=== PATIENT | female | born 1945 | race Caucasian/White ===

== ENCOUNTER 2016-09-01 12:30 | Outpatient (CLI) | payer MEDICARE, BC | END 2016-09-01 12:31 | DX: R10.9 Unspecified abdominal pain (principal); E78.00 Pure hypercholesterolemia, unspecified; E03.9 Hypothyroidism, unspecified ==

== ENCOUNTER 2016-09-04 12:31 | Outpatient (CLI) | payer MEDICARE, BC | END 2016-09-04 12:32 | disposition home or self-care (01) | DX: R10.9 Unspecified abdominal pain (principal) ==

== ENCOUNTER 2017-01-16 18:08 | Emergency (ER) | payer MEDICARE, BC ==
[2017-01-16] MEDS ORDERED: BUFFERED LIDOCAINE 10 ML SYRINGE ONE (19:36)
--- NOTE | 2017-01-16 19:39 | ED Physician Documentation ---
PD HPI HEAD INJURY - Stated complaint Stated Complaint: FALL HEAD INJ - Chief complaint Chief Complaint: Laceration - History obtained from History obtained from: Patient, Family () - History of Present Illness Mechanism of head injury: Fell (slip and fall at home, hit occiput on rock. No LOC. Tetanus UTD, some neck pain as well, no other injuries.) Review of Systems Constitutional: reports: Reviewed and negative Eyes: denies: Loss of vision, Decreased vision, Photophobia Ears: denies: Loss of hearing, Ear pain Nose: denies: Rhinorrhea / runny nose, Congestion Throat: denies: Dental pain / toothache, Sore throat PD PAST MEDICAL HISTORY - Past Medical History Past Medical History: No - Past Surgical History Past Surgical History: No - Allergies Allergies/Adverse Reactions: Allergies Allergy/AdvReac Type Severity Reaction Status Date / Time No Known Drug Allergies Allergy Verified 01/16/17 18:23 - Social History Does the pt smoke?: Yes Smoking Status: Current every day smoker Does the pt drink ETOH?: Yes Does the pt have substance abuse?: No - Family History Family history: reports: Non contributory - Immunizations Immunizations are current?: Yes Immunizations: TDAP current <10years PD ED PE NORMAL - Vitals Vital signs reviewed: Yes - General General: Alert and oriented X 3, No acute distress - HEENT HEENT: PERRL, EOMI, Other (She has a boggy Left occiptal occipital hematoma with overlying 1cm lac.) - Neck Neck: Supple, no meningeal sign, Other (mild diffuse TTP) - Cardiac Cardiac: RRR, No murmur - Respiratory Respiratory: No respiratory distress, Clear bilaterally - Abdomen Abdomen: Non tender - Neuro Neuro: Alert and oriented X 3, shirt sorter 2-12 intact, No motor deficit, No sensory deficit, Normal speech - Psych Psych: Normal mood, Normal affect Results - Vitals Vitals: Vital Signs - 24 hr 01/16/17 18:15 Temperature 36.0 C L Heart Rate 79 Respiratory 18 Rate Blood Pressure 171/94 H O2 Saturation 98 - Rads (name of study) CT Head and Cspine Radiology: EMP read contemporaneously (Degenerative and age-related changes without evidence of acute trauma.) Procedures - Laceration (location) Occiput Length in cm: 1 Wound type: Linear Anesthesia: Lidocaine 1%, With bicarb Wound Preparation: Irrigated copiously NS Skin layer closure: Lexie (2) Other: Tetanus UTD Complexity: Simple Departure - Departure Disposition: 01 Home, Self Care Clinical Impression: Concussion Qualifiers: Encounter type: initial encounter Loss of consciousness presence/duration: without LOC Qualified Code(s): S06.0X0A - Concussion without loss of consciousness, initial encounter Scalp laceration Qualifiers: Encounter type: initial encounter Qualified Code(s): S01.01XA - Laceration without foreign body of scalp, initial encounter Strain of neck Qualifiers: Encounter type: initial encounter Qualified Code(s): S16.1XXA - Strain of muscle, fascia and tendon at neck level, initial encounter Condition: Good Record reviewed to determine appropriate education?: Yes Instructions: ED Head Injury Closed Comments: Wash the wound briefly but in general keep it dry. Come back for any signs of infection which would include: Redness, swelling, drainage, increased pain, or fevers. Followup with your doctor in 7 days for suture removal. Your blood pressure was elevated today on check in to the emergency department. This does not mean that you have hypertension, it is a common phenomenon to check into the emergency department and have elevated blood pressure. I recommend that you see your primary care physician within the week to have it rechecked when you're feeling better.
[2017-01-16] MEDS ORDERED: HYDROcod/ACETAM 5/325 MG TABLET PO STA (19:57)
[2017-01-16] MEDS ORDERED: HYDROcod/ACETAM 5/325 MG TABLET ONE (19:58)
--- NOTE | 2017-01-16 20:25 | CT Preliminary Report ---
Exam: CT Head W/O IMPRESSION: Generalized age-related cortical atrophic changes without evidence of acute intracranial abnormality. [facility] SITE ID: [id number]
--- NOTE | 2017-01-16 20:27 | CT Report ---
EXAM: CT HEAD EXAM DATE: 01/16/2017 08:09 PM. CLINICAL HISTORY: Fall. Head injury. COMPARISON: MRI 12/24/2016. TECHNIQUE: Multiaxial CT images were obtained from the foramen magnum to the vertex. IV contrast: Non e. Reformats: Coronal. In accordance with CT protocol optimization, one or more of the following dose reduction techniques w ere utilized for this exam: automated exposure control, adjustment of mA and/or KV based on patient s ize, or use of iterative reconstructive technique. FINDINGS: Parenchyma: No intraparenchymal hemorrhage. No evidence of mass, midline shift, or CT findings of acu te infarction. Oneal-white differentiation is distinct. Extraaxial Spaces: Normal for age. No subdural or epidural collections identified. Ventricles: The ventricles and cortical sulci are prominent, consistent with age-related tissue loss. Sinuses: Imaged paranasal sinuses, orbits, and mastoids show no significant abnormality. Bones: No evidence of fracture or calvarial defect. Other: Mild chronic microangiopathic white matter changes are evident. Upper left parietal scalp [place] noted. IMPRESSION: Generalized age-related cortical atrophic changes without evidence of acute intracranial abnormality. [facility] Referring Provider Line: [phone] SITE ID: [id number]
--- NOTE | 2017-01-16 20:28 | CT Preliminary Report ---
Exam: CT Cervical Spine W/O IMPRESSION: 1. No acute cervical spine abnormalities. 2. Multilevel degenerative disk disease, worst at C5-C6. [facility] SITE ID: [id number]
--- NOTE | 2017-01-16 20:30 | CT Report ---
EXAM: CT CERVICAL SPINE WITHOUT CONTRAST DATE: 01/16/2017 08:16 PM HISTORY: Fall. Neck injury. COMPARISONS: None. TECHNIQUE: Thin-section axial images were acquired of the cervical spine without contrast. Post-proce ssing: Coronal and sagittal reformats. Other: None. In accordance with CT protocol optimization, one or more of the following dose reduction techniques w ere utilized for this exam: automated exposure control, adjustment of mA and/or KV based on patient s ize, or use of iterative reconstructive technique. FINDINGS: Alignment: Normal. No scoliosis or spondylolisthesis. Bones: No fracture or bone lesion. Interspace Levels/Facets: Disk space narrowing with spurring is at T4, moderate at C5-C6. Other: The paravertebral and prevertebral soft tissues are normal. The lung apices are clear. IMPRESSION: 1. No acute cervical spine abnormalities. 2. Multilevel degenerative disk disease, worst at C5-C6. [facility] Referring Provider Line: [phone] SITE ID: [id number]
[2017-01-16] MEDS ORDERED: HYDROcod/ACET 5/325 Prepack 6 PO STA (20:34)
[2017-01-16] MEDS ORDERED: HYDROcod/ACET 5/325 Prepack 6 PO ONE (20:39)
[2017-01-16 20:46] VITALS: BP 150/77
== END 2017-01-16 20:45 | disposition home or self-care (01) ==
LOC: ED 18:08
DX: S06.0X0A Concussion without loss of consciousness, initial encounter (principal); S01.01XA Laceration without foreign body of scalp, initial encounter; S16.1XXA Strain of muscle, fascia and tendon at neck level, initial encounter; W01.198A Fall on same level from slipping, tripping and stumbling with subsequent striking against other object, initial encounter; Y92.017 Garden or yard in single-family (private) house as the place of occurrence of the external cause; R03.0 Elevated blood-pressure reading, without diagnosis of hypertension; F17.200 Nicotine dependence, unspecified, uncomplicated
CPT/HCPCS: 12001; 70450; 72125; 99283; A9270

== ENCOUNTER 2017-08-17 21:29 | Emergency (ER) | payer MEDICARE, BC ==
[2017-08-17] MEDS ORDERED: LIDOCAINE 2% 10 ML MDV SUBQ STA (21:37)
[2017-08-17] MEDS ORDERED: fentaNYL 100 MCG/2 ML VIAL ONE (21:44)
[2017-08-17] MEDS ORDERED: fentaNYL 100 MCG/2 ML VIAL IVP STA (21:49)
[2017-08-17] MEDS ORDERED: ceFAZolin 2 GM/50 ML 2 GM/50 ML BAG IV ONE (21:50)
[2017-08-17] MEDS ORDERED: fentaNYL 100 MCG/2 ML VIAL IM STA (22:00)
[2017-08-17] MEDS ORDERED: BUPIVACAINE 0.5% PF 30 ML VIAL SUBQ STA (22:23)
--- NOTE | 2017-08-17 22:41 | XRAY Report ---
EXAM: LEFT HAND RADIOGRAPHY EXAM DATE: 08/17/2017 10:18 PM. CLINICAL HISTORY: Trauma second digit. COMPARISON: None. TECHNIQUE: 3 views. FINDINGS: Bones: No evidence for acute fracture. Joints: Moderate radial and mild dorsal subluxation at the second proximal interphalangeal joint. No acute fracture is seen. Second digit soft tissue swelling. IMPRESSION: Moderate radial and mild dorsal subluxation at the second proximal interphalangeal joint. No acute fracture is seen. Second digit soft tissue swelling. [facility] Referring Provider Line: [phone] SITE ID: [id number]
--- NOTE | 2017-08-17 22:41 | XRAY Preliminary Report ---
Exam: XR HAND 3 VIEW LT IMPRESSION: Moderate radial and mild dorsal subluxation at the second proximal interphalangeal joint. No acute fracture is seen. Second digit soft tissue swelling. [facility] SITE ID: [id number]
--- NOTE | 2017-08-18 00:24 | ED Physician Documentation ---
PD HPI UPPER EXT INJURY - Stated complaint Stated Complaint: LT FINGER INJURY - Chief complaint Chief Complaint: Laceration - History obtained from History obtained from: Patient, Family - History of Present Illness Location: Left, Finger Type of injury: Other Where injury occurred: Home Timing - onset: Today Timing - details: Abrupt onset, Still present Worsened by: Moving, Palpating Similar symptoms before: Has not had sx before Recently seen: Not recently seen - Additonal information Additional information: Patient is a 72 year old female who is presenting to the emergency department for open dislocation of the second digit on her right hand. According to patient and , patient got her finger caught in the harness of her dog who proceeded to run in [employer], dislocating her finger laterally 90 degrees. Review of Systems Constitutional: reports: Reviewed and negative Eyes: reports: Reviewed and negative Ears: reports: Reviewed and negative Nose: reports: Reviewed and negative Throat: reports: Reviewed and negative Respiratory: reports: Reviewed and negative GI: denies: Nausea, Vomiting : reports: Reviewed and negative Skin: reports: Lesions, Laceration (s) Musculoskeletal: reports: Extremity pain, Joint pain Neurologic: reports: Numbness PD PAST MEDICAL HISTORY - Past Medical History Past Medical History: Yes Endocrine/Autoimmune: HyPOthyroidism Psych: Depression, Anxiety - Past Surgical History Past Surgical History: 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 - Present Medications Home Medications: Ambulatory Orders Medication Instructions Recorded Confirmed Escitalopram Oxalate [Lexapro] 1 tab PO DAILY 08/17/17 08/17/17 Levothyroxine Sodium 1 tab PO DAILY 08/17/17 08/17/17 Amox/Clav 875/125 [Augmentin] 1 each PO Q12H #20 tablet 08/18/17 Oxycodone HCl/Acetaminophen 1 - 2 each PO Q6H PRN #14 tablet 08/18/17 [Percocet 5-325 mg Tablet] - Allergies Allergies/Adverse Reactions: Allergies Allergy/AdvReac Type Severity Reaction Status Date / Time No Known Drug Allergies Allergy Verified 08/17/17 21:40 - Social History Does the pt smoke?: Yes Smoking Status: Current every day smoker Does the pt drink ETOH?: Yes Does the pt have substance abuse?: No - Immunizations Immunizations are current?: Yes Immunizations: TDAP current <10years - POLST Patient has POLST: No PD ED PE NORMAL - General General: Alert and oriented X 3 - HEENT HEENT: Atraumatic - Cardiac Cardiac: RRR, No murmur - Respiratory Respiratory: No respiratory distress - Neuro Neuro: Alert and oriented X 3, No sensory deficit, Normal speech Eye Opening: Spontaneous Motor: Obeys Commands Verbal: Oriented GCS Score: 15 PD ED PE EXPANDED - General General: Alert, In Pain - Extremities Extremities: Left finger(s) (2nd digit open dislocation at 90%, ruputure of medial tendon), Sensory intact, Vascular intact. No: Tendon intact Results - Vitals Vitals: Vital Signs - 24 hr 08/17/17 08/17/17 08/18/17 21:30 22:59 00:45 Temperature 36.6 C 36.5 C Heart Rate 108 H 81 86 Respiratory 24 16 16 Rate Blood Pressure 187/110 H 123/79 132/78 H O2 Saturation 95 97 96 Oxygen O2 Source Room air - Rads (name of study) left hand Radiology: Final report received (no acute fracture, moderate dislocation of finger) Procedures - Laceration (location) left 2nd digit Length in cm: 3 Wound type: Curved Neurovascular status: Sensory intact, Motor intact, Vascular intact Tendon involvement: Tendon Injury Anesthesia: Marcaine 0.5% Wound Preparation: Chlorhexadine, Irrigated copiously NS, Wound explored, To the base Skin layer closure: Nylon, Size #-0 - enter number (4), Sutures - enter # (3) Other: Patient tolerated well, Neurovascular intact, Dressing applied, Tetanus UTD Complexity: Complex - Reduction Body part reduced: Left, Finger Fracture or dislocation: Dislocation Anesthesia: Digital block Shoulder reduction technique: Traction - counter tract Reduction aftercare: Alignment improved, Splint applied, Patient tolerated well PD MEDICAL DECISION MAKING - ED course Complexity details: reviewed old records, reviewed results, re-evaluated patient , considered differential, d/w patient, d/w family, d/w audit consultant ED course: Patient was seen immediately at bedside. Patient was treated with IM fentanyl and a digital block was performed. After the digital block the finger was reduced. Angulation improved from 90% to 15%. Patient was neurovascularly intact. Imaging was ordered. Patient was treated with ancef and was already up to date with tetanus. Patient was treated with another longer acting digital block with marcaine. When patient's returned from imaging the results were reviewed. there was no acute fracture. [facility] was contacted and the case was discussed [facility] Dr. Ha who recommended pain control, splinting augmentin. he stated that he would call the patient tomorrow to schedule surgical repair of a likely ruptured ligament. Patient's wound was loosely closed. Prescriptions were written. Patient and family were given detailed discharge and follow up instructions and were stable for discharge with outpatient follow up. Departure - Departure Disposition: 01 Home, Self Care Clinical Impression: Open finger dislocation Condition: Good Instructions: ED Laceration All Follow-Up: [facility] [Other] - Tomorrow Prescriptions: Amox/Clav 875/125 [Augmentin] 1 each PO Q12H #20 tablet Oxycodone HCl/Acetaminophen [Percocet 5-325 mg Tablet] 1 - 2 each PO Q6H PRN # 14 tablet PRN Reason: pain Comments: Your symptoms today are caused by dislocation, laceration and likely tendon laceration. You were started on antibiotics tonight and will need to be on them for the next 10 days. You can take motrin or tyenol for pain and percocet for breakthrough pain. You should be getting a call from [facility] tomorrow or the next day. You may return to the emergency department at any time for new , worsening or uncontrollable symptoms. Discharge Date/Time: 08/18/17 00:45
[2017-08-18] MEDS ORDERED: oxyCODONE/ACET 5/325 Prepack 4 PO STA (00:25)
[2017-08-18] MEDS ORDERED: BACITRACIN OINT TOP ONE (00:30)
[2017-08-18 00:56] VITALS: BP 132/78
== END 2017-08-18 00:45 | disposition home or self-care (01) ==
LOC: ED 21:29
DX: S63.280A Dislocation of proximal interphalangeal joint of right index finger, initial encounter (principal); S56.422A Laceration of extensor muscle, fascia and tendon of left index finger at forearm level, initial encounter; W23.0XXA Caught, crushed, jammed, or pinched between moving objects, initial encounter
CPT/HCPCS: 12002; 26770; 73130; 96365; 96372; 99284; A9270; J0690

== ENCOUNTER 2017-08-19 09:16 | Emergency (ER) | payer MEDICARE, BC ==
[2017-08-19] MEDS ORDERED: MORPHINE 2 MG/ML CARPUJECT IVP STA ×5 (09:44→13:04)
[2017-08-19] MEDS ORDERED: VANCOMYCIN INJ 1 GM in SODIUM CHLORIDE 0.9% 250 ML IV STA (09:44)
[2017-08-19] MEDS ORDERED: PIPERACILLIN/TAZOBACTAM 3.375 GM in SODIUM CHLORIDE 0.9% MINIBAG 100 ML IV STA (09:44)
--- NOTE | 2017-08-19 09:46 | ED Physician Documentation ---
History of Present Illness - Stated complaint Stated Complaint: LEFT FINGER INJ - Chief complaint Chief Complaint: Ext Problem - Additonal information Additional information: hx from pt and chart 72 female 2 days s.p open L PIP index finger dislocation with flexor tendon rupture (got finger tangled in dog harness and levi pulled an dtwisted) seen in ER per pt and EMR [facility] consulted, pt given dig block, finger reduced, wound sutured , finger splinted, dc on oral ab to follow up hand at [facility] next week for definitive repair pt returns today because finger is painful red swollen Review of Systems Constitutional: denies: Fever Musculoskeletal: reports: Extremity pain PD PAST MEDICAL HISTORY - Past Medical History Endocrine/Autoimmune: HyPOthyroidism Psych: Depression, Anxiety - Past Surgical History 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 - Present Medications Home Medications: Ambulatory Orders Medication Instructions Recorded Confirmed Escitalopram Oxalate [Lexapro] 1 tab PO DAILY 08/17/17 08/17/17 Levothyroxine Sodium 1 tab PO DAILY 08/17/17 08/17/17 Amox/Clav 875/125 [Augmentin] 1 each PO Q12H #20 tablet 08/18/17 Oxycodone HCl/Acetaminophen 1 - 2 each PO Q6H PRN #14 tablet 08/18/17 [Percocet 5-325 mg Tablet] - Allergies Allergies/Adverse Reactions: Allergies Allergy/AdvReac Type Severity Reaction Status Date / Time No Known Drug Allergies Allergy Verified 08/17/17 21:40 - Social History Does the pt smoke?: Yes Smoking Status: Current every day smoker Does the pt drink ETOH?: Yes Does the pt have substance abuse?: No - Immunizations Immunizations are current?: Yes Immunizations: TDAP current <10years - POLST Patient has POLST: No PD ED PE NORMAL - Vitals Vital signs reviewed: Yes - Cardiac Cardiac: RRR - Respiratory Respiratory: No respiratory distress, Clear bilaterally - Extremities Extremities: Other (L index finger - splint removed, finger diffusely red warm swollen extending onto hand, minimal senation distal to anterior PIP laceration , some deformity at PIP jt) Results - Vitals Vitals: Vital Signs - 24 hr 08/19/17 08/19/17 08/19/17 09:21 10:27 11:36 Temperature 36.6 C Heart Rate 88 74 66 Respiratory 22 18 18 Rate Blood Pressure 201/114 H 191/103 H 160/90 H O2 Saturation 99 100 98 08/19/17 08/19/17 12:42 13:37 Temperature Heart Rate 73 64 Respiratory 14 18 Rate Blood Pressure 152/85 H 139/105 H O2 Saturation 97 96 Oxygen O2 Source Room air - Labs Labs: Laboratory Tests 08/19/17 08/19/17 09:45 09:45 WBC 8.7 RBC 4.42 Hgb 13.7 Hct 40.3 MCV 91.2 MCH 31.0 MCHC 34.0 RDW 14.1 Plt Count 215 MPV 7.5 L Neut # 6.3 Lymph # 1.7 [place] # 0.6 Eos # 0.1 Baso # 0.1 Absolute Nucleated RBC 0.00 Nucleated RBC % 0.0 Sodium 136 Potassium 4.1 Chloride 101 Carbon Dioxide 22 Anion Gap 13.0 BUN 15 Creatinine 0.8 Estimated GFR (MDRD) 71 L Glucose 98 Calcium 9.8 PD MEDICAL DECISION MAKING - ED course ED course: wound cleans and dressed sensation improved when tight splint removed on rpt xrays finger is subluxed distal portion radial dorsal again - per prior report torn ligament so doubt further reductions will hold without surgery and pt now sensory intact given zosyn and vanco tdap UTD spoke to [facility] Dr Ingram who accepts pt in transfer in order to provide pain meds en route an expedite getting to surgery transfered by ambulance Departure - Departure Disposition: 02 Transfer Acute Care Hosp Clinical Impression: Open dislocation of finger of left hand Qualifiers: Encounter type: subsequent encounter Qualified Code(s): S63.259D - Unspecified dislocation of unspecified finger, subsequent encounter Condition: Fair Discharge Date/Time: 08/19/17 14:00
[2017-08-19 10:01] LABS: BASOPHILS # (AUTO) 0.1 10^3/uL (0.0-0.1); BASOPHILS % (AUTO) 0.7 %; EOSINOPHILS # (AUTO) 0.1 10^3/uL (0.0-0.7); EOSINOPHILS % (AUTO) 0.7 %; HGB - HEMOGLOBIN 13.7 g/dL (12.0-16.0); LYMPHOCYTES # (AUTO) 1.7 10^3/uL (1.5-3.5); LYMPHOCYTES % (AUTO) 19.8 %; MEAN CORPUSCULAR VOLUME 91.2 fL (81.0-99.0); MEAN PLATELET VOLUME 7.5 fL (7.9-10.8); MONOCYTES # (AUTO) 0.6 10^3/uL (0.0-1.0); MONOCYTES % (AUTO) 6.8 %; NEUTROPHILS # (AUTO) 6.3 10^3/uL (1.5-6.6); PLT - PLATELET COUNT 215 10^3/uL (130-450); RED BLOOD COUNT 4.42 10^6/uL (4.20-5.40); RED CELL DISTRIBUTION WIDTH 14.1 % (12.0-15.0); WHITE BLOOD COUNT 8.7 x10^3/uL (4.8-10.8)
[2017-08-19 10:04] LABS: CALCIUM 9.8 mg/dL (8.5-10.3); CREATININE 0.8 mg/dL (0.4-1.0)
--- NOTE | 2017-08-19 10:05 | XRAY Report ---
EXAM: LEFT HAND RADIOGRAPHY EXAM DATE: 08/19/2017 09:50 AM. CLINICAL HISTORY: Open dislocation now possible infection. COMPARISON: Left hand radiograph 08/17/2017. TECHNIQUE: 3 views. FINDINGS: Bones: There is volar dislocation of the left second PIP joint. No definite acute fractures. Joints: As above. Otherwise unremarkable. Soft Tissues: Unremarkable. IMPRESSION: 1. Second PIP joint dislocation. No definite acute fractures. [facility] Referring Provider Line: [phone] SITE ID: [id number]
--- NOTE | 2017-08-19 10:05 | XRAY Preliminary Report ---
Exam: XR HAND 3 VIEW LT IMPRESSION: 1. Second PIP joint dislocation. No definite acute fractures. [facility] SITE ID: [id number]
[2017-08-19] MEDS ORDERED: BACITRACIN OINT TOP ONE (10:54)
[2017-08-19] MEDS ORDERED: BUPIVACAINE 0.5% PF 30 ML VIAL SUBQ STA (11:40)
[2017-08-19 13:38] VITALS: BP 139/105
== END 2017-08-19 14:00 | disposition short-term general hospital (02) ==
LOC: ED 09:16
DX: S63.28 Dislocation of proximal interphalangeal joint of finger (principal); S61.211D Laceration without foreign body of left index finger without damage to nail, subsequent encounter; W23.0XXD Caught, crushed, jammed, or pinched between moving objects, subsequent encounter; E03.9 Hypothyroidism, unspecified; F17.200 Nicotine dependence, unspecified, uncomplicated
CPT/HCPCS: 36415; 73130; 80048; 85025; 87040; 96365; 96367; 96375; 96376; 99284; A9270; J3370

== ENCOUNTER 2017-08-19 13:46 | Outpatient (CLI) | payer MEDICARE, BC | END 2017-08-19 13:47 | disposition short-term general hospital (02) | LOC: EMS 13:46 | PROVIDERS: ATTEND Surgery | DX: S63.251A Unspecified dislocation of left index finger, initial encounter (principal); X58.XXXA Exposure to other specified factors, initial encounter | CPT/HCPCS: A0170; A0425; A0426 ==

== ENCOUNTER 2017-10-19 10:28 | Outpatient (CLI) | payer MEDICARE, BC ==
--- NOTE | 2017-10-19 14:11 | XRAY Report ---
TWO VIEW ABDOMEN: 10/19/2017 CLINICAL INDICATION: Pain. FINDINGS: Supine and upright views of the abdomen demonstrate a normal bowel gas pattern. No free intraperitoneal gas is present. No abnormal calcifications are seen overlying either renal shadow. IMPRESSION: NO EVIDENCE OF BOWEL OBSTRUCTION OR PERFORATION. TD: 10/19/2017 14:10
== END 2017-10-19 10:29 | disposition home or self-care (01) ==
LOC: DI.S 10:28
PROVIDERS: ATTEND Family Medicine
DX: R10.9 Unspecified abdominal pain (principal)
CPT/HCPCS: 74019

== ENCOUNTER 2018-01-08 08:00 | Outpatient (CLI) | payer MEDICARE, BC ==
[2018-01-08 18:09] LABS: BASOPHILS % (AUTO) 0.2 %; EOSINOPHILS # (AUTO) 0.1 10^3/uL (0.0-0.7); EOSINOPHILS % (AUTO) 1.2 %; HGB - HEMOGLOBIN 13.2 g/dL (12.0-16.0); LYMPHOCYTES # (AUTO) 2.4 10^3/uL (1.5-3.5); LYMPHOCYTES % (AUTO) 34.8 %; MEAN CORPUSCULAR HEMOGLOBIN 30.9 pg (27.0-31.0); MEAN CORPUSCULAR VOLUME 93.8 fL (81.0-99.0); MONOCYTES # (AUTO) 0.5 10^3/uL (0.0-1.0); MONOCYTES % (AUTO) 7.3 %; NEUTROPHILS # (AUTO) 3.9 10^3/uL (1.5-6.6); NEUTROPHILS % (AUTO) 56.5 %; PLT - PLATELET COUNT 229 10^3/uL (130-450); RED BLOOD COUNT 4.27 10^6/uL (4.20-5.40); RED CELL DISTRIBUTION WIDTH 13.6 % (12.0-15.0)
[2018-01-08 18:35] LABS: ALBUMIN 3.9 g/dL (3.2-5.5); ALBUMIN/GLOBULIN RATIO 1.2 (1.0-2.2); BILIRUBIN,TOTAL 0.5 mg/dL (0.2-1.0); CALCIUM 8.8 mg/dL (8.5-10.3); CREATININE 0.9 mg/dL (0.4-1.0); TOTAL PROTEIN 7.1 g/dL (6.7-8.2)
== END 2018-01-08 08:01 ==
LOC: LAB.F 08:00
PROVIDERS: ATTEND Nurse Practitioner Family
DX: K59.00 Constipation, unspecified (principal); E03.9 Hypothyroidism, unspecified; K92.1 Melena; E78.5 Hyperlipidemia, unspecified
CPT/HCPCS: 36415; 80053; 82270; 84443; 85025

== ENCOUNTER 2018-05-28 12:51 | Outpatient (CLI) | payer MEDICARE, BC ==
[2018-05-28 18:54] LABS: ALBUMIN 3.9 g/dL (3.2-5.5); ALBUMIN/GLOBULIN RATIO 1.2 (1.0-2.2); ALKALINE PHOSPHATASE 102 IU/L (42-121); ALT ALANINE AMINOTRANSFERASE 18 IU/L (10-60); AST ASPARTATE AMINOTRANSFERASE 20 IU/L (10-42); BILIRUBIN,TOTAL 1.1 mg/dL (0.2-1.0); BUN - BLOOD UREA NITROGEN 18 mg/dL (6-20); CALCIUM 8.8 mg/dL (8.5-10.3); CARBON DIOXIDE - CO2 26 mmol/L (21-32); CHLORIDE 105 mmol/L (101-111); CHOL/HDL RATIO 4.9 (<4.4); CHOLESTEROL 269 mg/dL; GFR - MDRD 55 (>89); GLUCOSE 79 mg/dL (70-100); HDL CHOLESTEROL 55 mg/dL; LDL CHOLESTEROL,CALCULATED 179 mg/dL; LDL/HDL RATIO 3.3 (<4.4); SODIUM 139 mmol/L (135-145); TOTAL PROTEIN 7.2 g/dL (6.7-8.2); VLDL CHOLESTEROL 35 mg/dL
== END 2018-05-28 12:52 | disposition home or self-care (01) ==
LOC: LAB.F 12:51
PROVIDERS: ATTEND Nurse Practitioner Family
DX: E78.5 Hyperlipidemia, unspecified (principal); E03.9 Hypothyroidism, unspecified
CPT/HCPCS: 36415; 80053; 80061; 83721; 84443

== ENCOUNTER 2019-03-23 09:28 | Outpatient (CLI) | payer MEDICARE, BC | END 2019-03-23 09:29 | disposition short-term general hospital (02) | LOC: EMS 09:28 | PROVIDERS: ATTEND Surgery | DX: R41.82 Altered mental status, unspecified (principal); R29.810 Facial weakness | CPT/HCPCS: A0425; A0427 ==

== ENCOUNTER 2019-12-05 10:07 | Emergency (ER) | payer MEDICARE, BC ==
[2019-12-05 10:39] LABS: BASOPHILS % (AUTO) 0.3 %; EOSINOPHILS # (AUTO) 0.1 10^3/uL (0.0-0.7); EOSINOPHILS % (AUTO) 0.8 %; HGB - HEMOGLOBIN 13.4 g/dL (12.0-16.0); LYMPHOCYTES # (AUTO) 1.7 10^3/uL (1.5-3.5); LYMPHOCYTES % (AUTO) 26.5 %; MEAN CORPUSCULAR HEMOGLOBIN 31.8 pg (27.0-31.0); MEAN CORPUSCULAR HGB CONC 34.4 g/dL (32.0-36.0); MEAN CORPUSCULAR VOLUME 92.6 fL (81.0-99.0); MEAN PLATELET VOLUME 9.3 fL (7.9-10.8); MONOCYTES # (AUTO) 0.4 10^3/uL (0.0-1.0); MONOCYTES % (AUTO) 5.4 %; NEUTROPHILS # (AUTO) 4.4 10^3/uL (1.5-6.6); NEUTROPHILS % (AUTO) 66.8 %; PLT - PLATELET COUNT 220 10^3/uL (130-450); RED BLOOD COUNT 4.21 10^6/uL (4.20-5.40); RED CELL DISTRIBUTION WIDTH 13.1 % (12.0-15.0); WHITE BLOOD COUNT 6.5 x10^3/uL (4.8-10.8)
[2019-12-05 10:51] LABS: ALBUMIN 3.9 g/dL (3.2-5.5); ALBUMIN/GLOBULIN RATIO 1.3 (1.0-2.2); BILIRUBIN,TOTAL 0.8 mg/dL (0.2-1.0); CALCIUM 9.1 mg/dL (8.5-10.3); CREATININE 0.9 mg/dL (0.4-1.0); TOTAL PROTEIN 6.9 g/dL (6.7-8.2)
[2019-12-05] MEDS ORDERED: MORPHINE 2 MG/ML CARPUJECT IVP STA (13:05)
--- NOTE | 2019-12-05 13:08 | ED Physician Documentation ---
PD HPI ABD PAIN - Stated complaint Stated Complaint: ABD PX - Chief complaint Chief Complaint: Abd Pain - History obtained from History obtained from: Patient, Family - History of Present Illness Timing - onset: Today (This is a khari but demented 74-year-old woman who presents with her . Most of the history is from the due to the dementia. Starting this morning she was complaining of episodic lower abdominal pain which now is in the mid right abdomen. Last bowel movement was yesterday. She has a history of constipation. No vomiting. No fevers. 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 - Present Medications Home Medications: Ambulatory Orders Medication Instructions Recorded Confirmed Escitalopram Oxalate [Lexapro] 1 tab PO DAILY 08/17/17 08/17/17 Levothyroxine Sodium 1 tab PO DAILY 08/17/17 08/17/17 Amox/Clav 875/125 [Augmentin] 1 each PO Q12H #20 tablet 08/18/17 Oxycodone HCl/Acetaminophen 1 - 2 each PO Q6H PRN #14 tablet 08/18/17 [Percocet 5-325 mg Tablet] - Allergies Allergies/Adverse Reactions: Allergies Allergy/AdvReac Type Severity Reaction Status Date / Time No Known Drug Allergies Allergy Verified 12/05/19 10:13 - Social History Does the pt smoke?: Yes Smoking Status: Current every day smoker Does the pt drink ETOH?: Yes Does the pt have substance abuse?: No - Immunizations Immunizations are current?: Yes Immunizations: TDAP current <10years - POLST Patient has POLST: No PD ED PE NORMAL - Vitals Vital signs reviewed: Yes - General General: Other (She is alert and oriented to person and place but not time or events. Most of the history is from the . She is cooperative and pleasant.) - HEENT HEENT: PERRL, EOMI - Neck Neck: Supple, no meningeal sign, No bony TTP - Cardiac Cardiac: RRR, No murmur - Respiratory Respiratory: No respiratory distress, Clear bilaterally - Abdomen Abdomen: Other (Minimal right sided mid abdominal tenderness without surgical signs, normal bowel tones. Negative Valdez sign.) - Extremities Extremities: No edema, No calf tenderness / cord - Neuro Neuro: No motor deficit, No sensory deficit Eye Opening: Spontaneous Motor: Obeys Commands Verbal: Confused (slight) GCS Score: 14 - Psych Psych: Normal mood, Normal affect Results - Vitals Vitals: Vital Signs - 24 hr 12/05/19 12/05/19 12/05/19 10:13 13:39 14:18 Temperature 36.5 C Heart Rate 76 68 72 Respiratory 15 20 18 Rate Blood Pressure 112/82 H 167/78 H 157/88 H O2 Saturation 98 98 100 Oxygen O2 Source Room air - Labs Labs: Laboratory Tests 12/05/19 12/05/19 12/05/19 10:33 10:33 14:45 WBC 6.5 RBC 4.21 Hgb 13.4 Hct 39.0 MCV 92.6 MCH 31.8 H MCHC 34.4 RDW 13.1 Plt Count 220 MPV 9.3 Neut # (Auto) 4.4 Lymph # (Auto) 1.7 [place] # (Auto) 0.4 Eos # (Auto) 0.1 Baso # (Auto) 0.0 Absolute Nucleated RBC 0.00 Nucleated RBC % 0.0 Sodium 136 Potassium 3.9 Chloride 108 Carbon Dioxide 20 L Anion Gap 8.0 BUN 18 Creatinine 0.9 Estimated GFR (MDRD) 61 L Glucose 108 H Calcium 9.1 Total Bilirubin 0.8 AST 14 ALT 14 Alkaline Phosphatase 87 Total Protein 6.9 Albumin 3.9 Globulin 3.0 Albumin/Globulin Ratio 1.3 Lipase 31 Urine Color YELLOW Urine Clarity CLEAR Urine pH 5.5 Ur Specific [place] 1.020 Urine Protein NEGATIVE Urine Glucose (UA) NEGATIVE Urine Ketones NEGATIVE Urine Occult Blood NEGATIVE Urine Nitrite NEGATIVE Urine Bilirubin NEGATIVE Urine Urobilinogen 0.2 (NORMAL) Ur Leukocyte Esterase NEGATIVE Ur Microscopic Review NOT INDICATED Urine Culture Comments NOT INDICATED - Rads (name of study) CT A/P Radiology: EMP read contemporaneously (moderate fecal load, dilated loops concerning for mild SBO) PD MEDICAL DECISION MAKING - ED course ED course: 74-year-old woman with history of chronic constipation presents with abdominal pain. Fairly benign examination. CT showing constipation, poss SBO and not much else. After the administration of an enema and magnesium citrate she had a large bowel movement. No evidence clinically of bowel obstruction, and she is not vomiting. Departure - Departure Disposition: 01 Home, Self Care Clinical Impression: Constipation Qualifiers: Constipation type: slow transit constipation Qualified Code(s): K59.01 - Slow transit constipation Abdominal pain Qualifiers: Abdominal location: generalized Qualified Code(s): R10.84 - Generalized abdominal pain Condition: Good Record reviewed to determine appropriate education?: Yes Instructions: ED Constipation Comments: Start doing MiraLAX daily again, increase water intake. Magnesium citrate on any day she does not have a bowel movement. Return if worse.
[2019-12-05] MEDS ORDERED: IOVERSOL 320 100 ML VIAL IVP ONE ×2 (13:21→14:07)
[2019-12-05 14:20] VITALS: BP 157/88
--- NOTE | 2019-12-05 14:35 | CT Report ---
Reason: IV only, R abd pain Procedure Date: 12/05/2019 Accession Number: [id number] / [id number] Procedure: CT - Abdomen/Pelvis W CPT Code: Final Report FULL RESULT: EXAM: CT ABDOMEN AND PELVIS EXAM DATE: 12/05/2019 02:07 PM. CLINICAL HISTORY: Right sided abdominal pain. COMPARISONS: None. TECHNIQUE: Routine helical CT imaging was performed through the abdomen and pelvis. IV contrast: OPTIRAY 320. Enteric contrast: No. Reconstructions: Coronal and sagittal. In accordance with CT protocol optimization, one or more of the following dose reduction techniques were utilized for this exam: automated exposure control, adjustment of mA and/or KV based on patient size, or use of iterative reconstructive technique. FINDINGS: Lung Bases: Unremarkable. Liver: Normal. No masses. Gallbladder/Bile Ducts: Unremarkable. Spleen: Normal. Pancreas: Normal. Adrenal Glands: Normal. Kidneys: Normal. No masses or hydronephrosis. Peritoneal Cavity/Bowel: There is no free fluid. There is moderate fecal loading of the colon from rectum to cecum. There is a large hiatus hernia involving most of the body and fundus of the stomach. There are several dilated loops of small bowel in the right lower quadrant with air-fluid levels. The transition point between dilated and nondilated loops is in the right upper quadrant, where a loop of small bowel lies anterior to the liver. The findings suggest an early or incomplete small bowel obstruction of the distal ileum. Nondilated bowel is seen extending from the right upper quadrant to the ileocecal valve. There is mild dilation of proximal loops of small bowel. Pelvic Organs: Normal. The bladder and visualized pelvic organs are within normal limits. Vasculature: No aneurysms or other significant abnormality. Bones: No significant abnormality. Other: None. IMPRESSION: 1. Moderate fecal loading from rectum to cecum. 2. Dilated loops of distal small bowel with air-fluid levels with a transition point in the right upper quadrant. The findings suggest early or incomplete small bowel obstruction. 3. Large hiatus hernia. RADIA
[2019-12-05] MEDS ORDERED: MAGNESIUM CITRATE 296 ML BOTTLE PO STA (14:54)
[2019-12-05 14:58] LABS: BILIRUBIN,URINE NEGATIVE (NEGATIVE); GLUCOSE, URINE (UA) NEGATIVE (NEGATIVE); KETONES,URINE (UA) NEGATIVE (NEGATIVE); LEUKOCYTE ESTERASE, URINE NEGATIVE (NEGATIVE); NITRITE,URINE NEGATIVE (NEGATIVE); OCCULT BLOOD,URINE NEGATIVE (NEGATIVE); PH,URINE 5.5 PH (5.0-7.5); PROTEIN,URINE NEGATIVE (NEGATIVE); UROBILINOGEN,URINE 0.2 (NORMAL) E.U./dL (NORMAL)
[2019-12-05 15:09] LABS: CLARITY,URINE CLEAR (CLEAR)
== END 2019-12-05 16:33 | disposition home or self-care (01) ==
LOC: ED 10:07
DX: K59.01 Slow transit constipation (principal); R10.84 Generalized abdominal pain; K44.9 Diaphragmatic hernia without obstruction or gangrene; Z90.710 Acquired absence of both cervix and uterus; I10 Essential (primary) hypertension; F03.90 Unspecified dementia, unspecified severity, without behavioral disturbance, psychotic disturbance, mood disturbance, and anxiety; F17.200 Nicotine dependence, unspecified, uncomplicated
CPT/HCPCS: 36415; 74177; 80053; 81003; 83690; 85025; 96374; 99281; 99284; A9270; Q9967; 81001; 87086

== ENCOUNTER 2020-07-05 07:05 | Emergency (ER) | payer MEDICARE, BC ==
--- NOTE | 2020-07-05 07:45 | ED Physician Documentation ---
PD HPI HEAD INJURY - Stated complaint Stated Complaint: GLF/HEAD LAC - Chief complaint Chief Complaint: Trauma Hd/Nk - History obtained from History obtained from: Patient - History of Present Illness Mechanism of head injury: Fell Where head injury occurred: Home Timing - onset: Today Pain level max: 0 Pain level now: 0 Location of injury: Back Associated symptoms: No: LOC, AMS, Neck pain, Paresthesias Symptoms improve with: Rest Symptoms worsen with: Palpation Contributing factors: No: Anticoagulated, Intoxicated - Additional information Additional information: Patient is a 74-year-old female who presents to the emergency department after a trip and fall last night. Struck the back of her head on a windowsill. No loss of consciousness. No vomiting. Does have frontotemporal dementia. Small abrasion/laceration to the occiput. Does not take blood thinners. states her mental status is not significantly changed from baseline. Nothing makes it better or worse. 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 - Present Medications Home Medications: Ambulatory Orders Medication Instructions Recorded Confirmed Escitalopram Oxalate [Lexapro] 1 tab PO DAILY 08/17/17 08/17/17 Levothyroxine Sodium 1 tab PO DAILY 08/17/17 08/17/17 Amox/Clav 875/125 [Augmentin] 1 each PO Q12H #20 tablet 08/18/17 Oxycodone HCl/Acetaminophen 1 - 2 each PO Q6H PRN #14 tablet 08/18/17 [Percocet 5-325 mg Tablet] - Allergies Allergies/Adverse Reactions: Allergies Allergy/AdvReac Type Severity Reaction Status Date / Time No Known Drug Allergies Allergy Verified 07/05/20 07:21 - Social History Does the pt smoke?: Yes Smoking Status: Current every day smoker Does the pt drink ETOH?: Yes Does the pt have substance abuse?: No - Immunizations Immunizations are current?: Yes Immunizations: TDAP current <10years - POLST Patient has POLST: No PD ED PE NORMAL - Vitals Vital signs reviewed: Yes - General General: No acute distress, Well developed/nourished, Other (Alert, oriented to person only, pleasant) - HEENT HEENT: PERRL, Ears normal, Moist mucous membranes, Pharynx benign, Other (Small abrasion/laceration to the occiput, less than 1 cm. Not bleeding. Small hemato ma. 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, No motor deficit, No sensory deficit, Other (Alert, pleasant) Eye Opening: Spontaneous Motor: Obeys Commands Verbal: Confused GCS Score: 14 Results - Vitals Vitals: Vital Signs - 24 hr 07/05/20 07/05/20 07:18 08:44 Temperature 36.2 C L Heart Rate 71 76 Respiratory 16 Rate Blood Pressure 135/94 H 158/96 H O2 Saturation 95 96 Oxygen O2 Source Room air - Rads (name of study) Head CT Radiology: Prelim report reviewed, EMP read contemporaneously, See rad report (No acute intracranial abnormality) Procedures - Laceration (location) Occiput Length in cm: 1 Wound type: Linear, Into subcut fat, Clean Neurovascular status: Sensory intact, Motor intact, Vascular intact Wound Preparation: Irrigated copiously NS Skin layer closure: Phillip (2) Other: Patient tolerated well, No complications, Neurovascular intact, Dressing applied, Tetanus UTD Complexity: Simple PD MEDICAL DECISION MAKING - ED course Complexity details: reviewed results, re-evaluated patient, considered differential, d/w patient, d/w family ED course: Patient with a fall last night. No acute findings on head CT. Laceration repaired with phillip. No other acute injuries. Warnings of infection and instructions on wound care given at bedside. Also counseled on how to minimize scarring. Patient and family counseled regarding signs and symptoms for which I believe and urgent re-evaluation would be necessary. with good understanding of and agreement to plan and is comfortable going home at this time This document was made in part using voice recognition software. While efforts are made to proofread this document, sound alike and grammatical errors may occur. Departure - Departure Disposition: 01 Home, Self Care Clinical Impression: Scalp laceration Qualifiers: Encounter type: initial encounter Qualified Code(s): S01.01XA - Laceration without foreign body of scalp, initial encounter Closed head injury Qualifiers: Encounter type: initial encounter Qualified Code(s): S09.90XA - Unspecified injury of head, initial encounter Condition: Good Instructions: ED Head Injury Closed, ED Laceration Scalp Stitch Or Stap Follow-Up: ABAD SIERRA MD [Primary Care Provider] - Within 1 week Comments: Return if you worsen. Her head CT does not show any acute abnormalities today. The phillip should be removed in 10-14 days with her doctor. Discharge Date/Time: 07/05/20 08:45
--- NOTE | 2020-07-05 08:15 | CT Report ---
PROCEDURE: HEAD WO INDICATIONS: fall, head injury TECHNIQUE: Noncontrast 4.5 mm thick angled axial sections acquired from the foramen magnum to the vertex. For r adiation dose reduction, the following was used: automated exposure control, adjustment of mA and/or kV according to patient size. COMPARISON: None. FINDINGS: Image quality: Excellent. CSF spaces: Basal cisterns are patent. No extra-axial fluid collections. Ventricles are normal in size and shape. Brain: No midline shift. No intracranial masses or hemorrhage. Oneal-white matter interface is norm al. Age-related volume loss and mild small vessel ischemic change, as before. Skull and face: Calvarium and visualized facial bones are intact, without suspicious lesions. Sinuses: Visualized sinuses and mastoids are clear. IMPRESSION: 1. Age-related volume loss and mild small vessel ischemic change. 2. No evidence of acute stroke, hemorrhage, or mass. 3. No evidence of significant intracranial sequelae of acute trauma. Reviewed by: Karan Chiang MD on 07/05/2020 8:13 AM PST Approved by: Karan Chiang MD on 07/05/2020 8:13 AM PST Station ID: [id number]
[2020-07-05 08:45] VITALS: BP 158/96
== END 2020-07-05 08:45 | disposition home or self-care (01) ==
LOC: ED 07:05
DX: S01.01XA Laceration without foreign body of scalp, initial encounter (principal); S09.90XA Unspecified injury of head, initial encounter; W01.198A Fall on same level from slipping, tripping and stumbling with subsequent striking against other object, initial encounter; Y93.01 Activity, walking, marching and hiking; Y92.009 Unspecified place in unspecified non-institutional (private) residence as the place of occurrence of the external cause; F03.90 Unspecified dementia, unspecified severity, without behavioral disturbance, psychotic disturbance, mood disturbance, and anxiety; I10 Essential (primary) hypertension; F17.200 Nicotine dependence, unspecified, uncomplicated
CPT/HCPCS: 12001; 70450; 99284

== ENCOUNTER 2020-07-15 13:56 | Emergency (ER) | payer MEDICARE, BC ==
--- NOTE | 2020-07-15 14:27 | ED Physician Documentation ---
PD HPI WOUND RECHECK - Stated complaint Stated Complaint: REMOVAL OF SCALP PHILLIP - Histroy obtained from History obtained from: Patient - History of Present Illness Location: Scalp Timing - onset: How many days ago (10) Associated symptoms: No: Fever, Redness, Swelling Similar symptoms before: Has not had sx before Recently seen: Emergency Dept (10 days ago with 2 phillip placed in scalp wound.) Review of Systems Constitutional: denies: Fever, Chills Neurologic: reports: Confused. 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 - Present Medications Home Medications: Ambulatory Orders Medication Instructions Recorded Confirmed Escitalopram Oxalate [Lexapro] 1 tab PO DAILY 08/17/17 08/17/17 Levothyroxine Sodium 1 tab PO DAILY 08/17/17 08/17/17 Amox/Clav 875/125 [Augmentin] 1 each PO Q12H #20 tablet 08/18/17 Oxycodone HCl/Acetaminophen 1 - 2 each PO Q6H PRN #14 tablet 08/18/17 [Percocet 5-325 mg Tablet] - Allergies Allergies/Adverse Reactions: Allergies Allergy/AdvReac Type Severity Reaction Status Date / Time No Known Drug Allergies Allergy Verified 07/15/20 14:35 - Social History Does the pt smoke?: Yes Smoking Status: Current every day smoker Does the pt drink ETOH?: Yes Does the pt have substance abuse?: No - Immunizations Immunizations are current?: Yes Immunizations: TDAP current <10years - POLST Patient has POLST: No PD ED PE NORMAL - Vitals Vital signs reviewed: Yes - General General: Alert and oriented X 3, No acute distress, Well developed/nourished - Derm Derm: Normal color, Warm and dry - Extremities Extremities: Other (right parietal area with [address], with well healing appearance scalp tissue.) - Neuro Neuro: Alert and oriented X 3, No motor deficit, No sensory deficit, Normal speech Results - Vitals Vitals: Vital Signs - 24 hr 07/15/20 14:25 Temperature 36.2 C L Heart Rate 87 Respiratory 16 Rate Blood Pressure 123/94 H O2 Saturation 99 Oxygen O2 Source Room air Procedures - Suture/staple Removal (location) scalp Suture/staple removal: # phillip (2), No complications. No: Infected, Dehiscence PD MEDICAL DECISION MAKING - ED course Complexity details: reviewed old records, considered differential, d/w patient Departure - Departure Disposition: 01 Home, Self Care Clinical Impression: Removal of phillip Condition: Stable Record reviewed to determine appropriate education?: Yes Instructions: ED Stap Removal No Complication Follow-Up: ABAD SIERRA MD [Primary Care Provider] - Comments: Your wound appears healing well. Guy removed without any problems. Discharge Date/Time: 07/15/20 14:54
[2020-07-15 14:35] VITALS: BP 123/94
== END 2020-07-15 14:54 | disposition home or self-care (01) ==
LOC: SUPCPDRO 13:56 → ED 13:56
DX: S01.01XD Laceration without foreign body of scalp, subsequent encounter (principal); X58.XXXD Exposure to other specified factors, subsequent encounter; F03.90 Unspecified dementia, unspecified severity, without behavioral disturbance, psychotic disturbance, mood disturbance, and anxiety; I10 Essential (primary) hypertension; F17.200 Nicotine dependence, unspecified, uncomplicated
CPT/HCPCS: 99281

== ENCOUNTER 2020-08-10 16:12 | Outpatient (CLI) | payer MEDICARE, BC ==
--- OUTSIDE RECORDS SUMMARY | 2020-08-11 04:55 | EXTERNAL MEDICAL SUMMARY RPT | Continuity of Care Document ---
:1945 Demographics Phone Unavailable Preferred Language Unknown Marital Status Unknown Gnosticism Affiliation Unknown Race Unknown Ethnic Group Unknown Author Organization [place] Address [address] [phone] Phone Care Team Providers Name Role Phone TAWNY Unavailable Unavailable Tawny Unavailable Unavailable MA Unavailable Unavailable Guerrero Unavailable Unavailable Problems date description facility 2016-09-01 12:30 HYPOTHYROIDISM, UNSPECIFIED [facility] 2016-09-01 12:30 PURE HYPERCHOLESTEROLEMIA, [facility] UNSPECIFIED 2016-09-01 12:[address] [facility] 2016-09-04 12:[address] [facility] 2017-01-16 18:08 NICOTINE DEPENDENCE, UNSPECIFIED, [facility] UNCOMPLICATED 2017-01-16 18:08 ELEVATED BLOOD-PRESSURE READING, [facility] W/O DIAGNOSIS OF HTN 2017-01-16 18:08 LACERATION WITHOUT FOREIGN BODY OF [facility] SCALP, INITIAL ENCOUNTER 2017-01-16 18:08 CONCUSSION WITHOUT LOSS OF [facility] CONSCIOUSNESS, INITIAL ENCOUNTER 2017-01-16 18:08 UNSPECIFIED INJURY OF HEAD, [facility] INITIAL ENCOUNTER 2017-01-16 18:08 STRAIN OF MUSCLE, FASCIA AND [facility] TENDON AT NECK LEVEL, INIT 2017-01-16 18:08 FALL SAME LEV FROM SLIP/TRIP W [facility] STRIKE AGNST OTH OBJECT, INIT 2017-01-16 18:08 GARDEN OR YARD IN SINGLE-FAMILY [facility] (PRIVATE) HOUSE PLACE 2017-08-17 21:29 LACERAT EXTN MUSC/FASC/[facility], INIT 2017-08-17 21:29 DISLOCATION OF PROXIMAL INTERPHALN [facility] JOINT OF R IDX FN, INIT 2017-08-17 21:29 UNSP INJURY OF LEFT WRIST, HAND [facility] AND FINGER(S), INIT ENCNT 2017-08-17 21:29 CAUGHT, CRUSH, JAMMED, OR PINCHED [facility] BETW MOVING OBJECTS, INIT 2017-08-19 09:16 HYPOTHYROIDISM, UNSPECIFIED [facility] 2017-08-19 09:16 NICOTINE DEPENDENCE, UNSPECIFIED, [facility] UNCOMPLICATED 2017-08-19 09:16 LACERATION W/O FB OF L IDX FNGR [facility] W/O DAMAGE TO NAIL, SUBS 2017-08-19 09:16 DISLOCATION OF PROXIMAL INTERPHALN i [facility] JOINT OF L IDX FNGR, SUBS 2017-08-19 09:16 UNSP INJURY OF LEFT WRIST, HAND [facility] AND FINGER(S), INIT ENCNT 2017-08-19 09:16 CAUGHT, CRUSH, JAMMED, OR PINCHED [facility] BETW MOVING OBJECTS, SUBS 2017-10-19 10:[address] [facility] 2018-01-08 08:00 HYPOTHYROIDISM, UNSPECIFIED [facility] 2018-01-08 08:00 HYPERLIPIDEMIA, UNSPECIFIED [facility] 2018-01-08 08:00 CONSTIPATION, UNSPECIFIED 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 2019-12-05 10:[address] PA[address] [facility] 2019-12-05 10:[address] 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 2020-07-05 07:05 UNSPECIFIED [facility]URBANC 2020-07-05 07:05 LACERATION WITHOUT FOREIGN BODY OF [facility] SCALP, INITIAL 2020-07-05 07:05 FALL SAME LEV FROM SLIP/TRIP W [facility] STRIKE AGNST OTH OB 2020-07-05 07:[address] IN [facility] (PRIVATE) RESIDENC 2020-07-05 07:05 ACTIVITY, WALKING, MARCHING AND [facility] HIKING 2020-07-05 07:05 UNSPECIFIED DEMENTIA WITHOUT [facility] BEHAVIORAL DISTURBANCE 2020-07-05 07:05 NICOTINE DEPENDENCE, UNSPECIFIED, [facility] UNCOMPLICATED 2020-07-05 07:05 ESSENTIAL (PRIMARY) HYPERTENSION [facility] 2020-07-05 07:05 LACERATION WITHOUT FOREIGN BODY OF [facility] SCALP, INITIAL ENCOUNTER 2020-07-05 07:05 UNSPECIFIED INJURY OF HEAD, [facility] INITIAL ENCOUNTER 2020-07-05 07:05 FALL SAME LEV FROM SLIP/TRIP [facility] STRIKE AGNST OTH OBJECT, INIT 2020-07-05 07:[address] IN [facility] RESIDENCE PL[facility] 2020-07-15 13:56 UNSPECIFIED DEMENTIA WITHOUT [facility] BEHAVIORAL DISTURBANC 2020-07-15 13:56 NICOTINE DEPENDENCE, UNSPECIFIED, [facility] UNCOMPLICATED 2020-07-15 13:56 ESSENTIAL (PRIMARY) HYPERTENSION [facility] 2020-07-15 13:56 LACERATION WITHOUT FOREIGN BODY OF [facility] SCALP, SUBS ENC 2020-07-15 13:56 EXPOSURE TO OTHER SPECIFIED [facility] FACTORS, SUBSEQUENT EN Allergies date description facility NO KNOWN ENVIRONMENTAL ALLERGIES [facility] ACYCLOVIR [facility] [place] RITUXIMAB [facility] [place] No Known Medication Allergies [facility] NO KNOWN ALLERGIES [facility] DYE [facility] IODINE [facility] No Known Drug Allergies [facility] CODEINE [facility] NO KNOWN ENVIRONMENTAL ALLERGIES [facility] PENICILLINS [facility] SULFA ANTIBIOTICS [facility] IODINE AND IODIDE CONTAINING PRODUCTS [facility] NO KNOWN ALLERGIES [facility] GLUCOSAMINE ANALOGUES [facility] dical Center LATEX [facility] WHEAT [facility] TALC [facility] DOXYCYCLINE [facility] AZITHROMYCIN [facility] AMOXICILLIN [facility] GLUCOSAMINE [facility] NICKEL [facility] IODINE [facility] Center IPRATROPIUM-ALBUTEROL [facility] dical Center No Known Drug Allergies [facility] No Known Drug Allergies [facility] No Known Drug Allergies [facility] No Known Drug Allergies [facility] Results Social History date description facility [id number]
== END 2020-08-10 16:13 | disposition critical access hospital (66) ==
LOC: EMS 16:12
PROVIDERS: ATTEND Surgery
DX: R40.4 Transient alteration of awareness (principal)
CPT/HCPCS: A0425; A0427

== ENCOUNTER 2020-08-10 16:49 | Emergency (ER) | payer MEDICARE, BC ==
[2020-08-10] MEDS ORDERED: SODIUM CHLORIDE 0.9% 1,000 ML IV STA (17:15)
--- NOTE | 2020-08-10 17:18 | ED Physician Documentation ---
History of Present Illness - Stated complaint Stated Complaint: SYNCOPE - Chief complaint Chief Complaint: Neuro - History obtained from History obtained from: Family, EMS - Additonal information Additional information: Patient is brought to the emergency department by EMS after having what appeared to be a syncopal episode at home. The patient has severe dementia and requires a caregiver during the day when her is not around. Apparently, the patient had Been put on a medication for insomnia, but this was not really helping, so her doctor doubled the dose. Patient took her first increased dose last night, and slept till about 12 30-13 100 today. When patient woke up, she seemed a little less alert than her normal self. She was eating at the table when she began to slump over and lost consciousness for about 4 minutes. It is not clear whether the patient simply dozed off or whether she had a spontaneous loss of consciousness from some other cause. The medics were summoned and when they got there, they state the patient was back awake, but her blood pressure was in the 70s systolic. When they laid her down, she seemed to improve and her blood pressure improved to the 90s. They got an IV and started IV fluids, and after about 500 cc, the patient's blood pressure come up into the 120s. states the patient always answers questions cheerfully and says no when asked if anything is bothering her. He is not really sure if she has been in pain or had any other symptoms of illness, though he has not noticed any he does note that the patient has gradually stopped eating much and now, she barely drinks anything will even spit out her pills. No other complaints at this time. 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 - Present Medications Home Medications: Ambulatory Orders Medication Instructions Recorded Confirmed Escitalopram Oxalate [Lexapro] 1 tab PO DAILY 08/17/17 08/17/17 Levothyroxine Sodium 1 tab PO DAILY 08/17/17 08/17/17 Amox/Clav 875/125 [Augmentin] 1 each PO Q12H #20 tablet 08/18/17 Oxycodone HCl/Acetaminophen 1 - 2 each PO Q6H PRN #14 tablet 08/18/17 [Percocet 5-325 mg Tablet] - Allergies Allergies/Adverse Reactions: Allergies Allergy/AdvReac Type Severity Reaction Status Date / Time No Known Drug Allergies Allergy Verified 08/10/20 17:04 - Social History Does the pt smoke?: Yes Smoking Status: Current every day smoker Does the pt drink ETOH?: Yes Does the pt have substance abuse?: No - Immunizations Immunizations are current?: Yes Immunizations: TDAP current <10years - POLST Patient has POLST: No PD ED PE NORMAL - Vitals Vital signs reviewed: Yes - General General: No acute distress, Well developed/nourished, Other (Alert, oriented x0) - HEENT HEENT: Atraumatic, PERRL, EOMI, Moist mucous membranes - Neck Neck: Supple, no meningeal sign - Cardiac Cardiac: RRR, No murmur, Strong equal pulses - Respiratory Respiratory: No respiratory distress, Clear bilaterally - Abdomen Abdomen: Soft, Non tender, Non distended - Back Back: No CVA TTP, No spinal TTP - Derm Derm: Normal color, Warm and dry, No rash, Other (No trauma) - Extremities Extremities: No deformity, No tenderness to palpate, No edema, No calf tenderness / cord - 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 Oriented x0.) - Psych Psych: Normal mood, Normal affect Results - Vitals Vitals: Oxygen O2 Source Room air - Labs Labs: Laboratory Tests 08/10/20 08/10/20 08/10/20 17:31 17:31 17:31 WBC 6.7 RBC 3.80 L Hgb 11.7 L Hct 36.5 L MCV 96.1 MCH 30.8 MCHC 32.1 RDW 13.0 Plt Count 181 MPV 8.7 Neut # (Auto) 5.0 Lymph # (Auto) 1.0 L Sully # (Auto) 0.5 Eos # (Auto) 0.1 Baso # (Auto) 0.0 Absolute Nucleated RBC 0.00 Nucleated RBC % 0.0 Sodium 140 Potassium 3.9 Chloride 106 Carbon Dioxide 26 Anion Gap 8.0 BUN 16 Creatinine 1.0 Estimated GFR (MDRD) 54 L Glucose 114 H Calcium 9.0 Total Bilirubin 0.9 AST 15 ALT 16 Alkaline Phosphatase 74 Troponin I High Sens 2.8 Total Protein 6.5 L Albumin 3.8 Globulin 2.7 Albumin/Globulin Ratio 1.4 Lipase 25 Urine Color Urine Clarity Urine pH Ur Specific Gilberts Urine Protein Urine Glucose (UA) Urine Ketones Urine Occult Blood Urine Nitrite Urine Bilirubin Urine Urobilinogen Ur Leukocyte Esterase Ur Microscopic Review Urine Culture Comments 08/10/20 19:20 WBC RBC Hgb Hct MCV MCH MCHC RDW Plt Count MPV Neut # (Auto) Lymph # (Auto) Sully # (Auto) Eos # (Auto) Baso # (Auto) Absolute Nucleated RBC Nucleated RBC % Sodium Potassium Chloride Carbon Dioxide Anion Gap BUN Creatinine Estimated GFR (MDRD) Glucose Calcium Total Bilirubin AST ALT Alkaline Phosphatase Troponin I High Sens Total Protein Albumin Globulin Albumin/Globulin Ratio Lipase Urine Color YELLOW Urine Clarity CLEAR Urine pH 6.0 Ur Specific Gilberts 1.020 Urine Protein NEGATIVE Urine Glucose (UA) NEGATIVE Urine Ketones NEGATIVE Urine Occult Blood NEGATIVE Urine Nitrite NEGATIVE Urine Bilirubin NEGATIVE Urine Urobilinogen 1 (NORMAL) Ur Leukocyte Esterase NEGATIVE Ur Microscopic Review NOT INDICATED Urine Culture Comments NOT INDICATED PD MEDICAL DECISION MAKING - ED course Complexity details: reviewed old records, reviewed results, re-evaluated patient, considered differential, d/w family ED course: The patient was quite well-appearing in the emergency department and was worked up with labs, EKG, and urinalysis. The work-up was unremarkable. I suspected dehydration, in combination with the oversedation from the patient's recent dose increase on her sleep aid. I discussed with this with the , who agreed. We have discussed that he can go back to the original dose of the sleep aid, or he could do a dose and a half however which would be correction between the original dose and the patient's recent current dose. At this point, the patient still slightly drowsy, though she is conversant and pleasant. The states he will give her the original dose tonight and take it from there. We have discussed making sure the patient drinks plenty of fluids. We have discussed the usual indications for return. Departure - Departure Disposition: 01 Home, Self Care Clinical Impression: Dehydration Altered mental status Qualifiers: Altered mental status type: somnolence Qualified Code(s): R40.0 - Somnolence Syncope Qualifiers: Syncope type: unspecified Qualified Code(s): R55 - Syncope and collapse Condition: Stable Instructions: ED Dehydration, ED Syncope Vasovagal Comments: All of the labs and urinalysis look good. There is no evidence of heart attack or severe infection to cause the symptoms. Lily has shown signs of dehydration, and she has been treated for this today. Discharge Date/Time: 08/10/20 21:13
[2020-08-10 17:36] LABS: BASOPHILS % (AUTO) 0.3 %; EOSINOPHILS # (AUTO) 0.1 10^3/uL (0.0-0.7); HGB - HEMOGLOBIN 11.7 g/dL (12.0-16.0); LYMPHOCYTES % (AUTO) 15.5 %; MEAN CORPUSCULAR HEMOGLOBIN 30.8 pg (27.0-31.0); MEAN CORPUSCULAR HGB CONC 32.1 g/dL (32.0-36.0); MEAN CORPUSCULAR VOLUME 96.1 fL (81.0-99.0); MEAN PLATELET VOLUME 8.7 fL (7.9-10.8); MONOCYTES # (AUTO) 0.5 10^3/uL (0.0-1.0); NEUTROPHILS % (AUTO) 74.8 %; PLT - PLATELET COUNT 181 10^3/uL (130-450); WHITE BLOOD COUNT 6.7 x10^3/uL (4.8-10.8)
[2020-08-10 17:50] LABS: ALBUMIN 3.8 g/dL (3.2-5.5); ALBUMIN/GLOBULIN RATIO 1.4 (1.0-2.2); BILIRUBIN,TOTAL 0.9 mg/dL (0.2-1.0); TOTAL PROTEIN 6.5 g/dL (6.7-8.2)
[2020-08-10 19:37] LABS: BILIRUBIN,URINE NEGATIVE (NEGATIVE); GLUCOSE, URINE (UA) NEGATIVE (NEGATIVE); KETONES,URINE (UA) NEGATIVE (NEGATIVE); LEUKOCYTE ESTERASE, URINE NEGATIVE (NEGATIVE); NITRITE,URINE NEGATIVE (NEGATIVE); OCCULT BLOOD,URINE NEGATIVE (NEGATIVE); PROTEIN,URINE NEGATIVE (NEGATIVE); UROBILINOGEN,URINE 1 (NORMAL) E.U./dL (NORMAL)
[2020-08-10 19:41] LABS: CLARITY,URINE CLEAR (CLEAR)
[2020-08-10 20:44] VITALS: BP 120/60
--- OUTSIDE RECORDS SUMMARY | 2020-08-11 04:53 | EXTERNAL MEDICAL SUMMARY RPT | Continuity of Care Document ---
:1945 Demographics Phone Unavailable Preferred Language Unknown Marital Status Unknown Anabaptist Affiliation Unknown Race Unknown Ethnic Group Unknown Author Organization [place] Address [address] [phone] Phone Care Team Providers Name Role Phone TAWNY Unavailable Unavailable Guerrero Unavailable Unavailable MA Unavailable Unavailable Tawny Unavailable Unavailable Problems date description facility 2016-09-01 12:30 HYPOTHYROIDISM, UNSPECIFIED [facility] 2016-09-01 12:30 PURE HYPERCHOLESTEROLEMIA, [facility] UNSPECIFIED 2016-09-01 12:30 UNSPECIFIED ABDOMINAL PAIN [facility] 2016-09-04 12:31 UNSPECIFIED ABDOMINAL PAIN [facility] 2017-01-16 18:08 NICOTINE DEPENDENCE, UNSPECIFIED, [facility] UNCOMPLICATED 2017-01-16 18:08 ELEVATED BLOOD-PRESSURE READING, [facility] W/O DIAGNOSIS OF HTN 2017-01-16 18:08 LACERATION WITHOUT FOREIGN BODY OF [facility] SCALP, INITIAL ENCOUNTER 2017-01-16 18:08 CONCUSSION WITHOUT LOSS OF [facility] CONSCIOUSNESS, INITIAL ENCOUNTER 2017-01-16 18:08 UNSPECIFIED INJURY OF HEAD, [facility] INITIAL ENCOUNTER 2017-01-16 18:08 STRAIN OF MUSCLE, FASCIA AND [facility] TENDON AT NECK LEVEL, INIT 2017-01-16 18:08 FALL SAME LEV FROM SLIP/TRIP W [facility] STRIKE AGNST OTH OBJECT, INIT 2017-01-16 18:08 GARDEN OR YARD IN SINGLE-FAMILY [facility] (PRIVATE) HOUSE PLACE 2017-08-17 21:29 LACERAT EXTN MUSC[facility]FASC[facility] 2017-08-17 21:29 DISLOCATION OF PROXIMAL INTERPHALN [facility] JOINT OF R IDX FN, INIT 2017-08-17 21:29 UNSP INJURY OF LEFT WRIST, HAND [facility] AND FINGER(S), INIT ENCNT 2017-08-17 21:29 CAUGHT, CRUSH, JAMMED, OR PINCHED [facility] BETW MOVING OBJECTS, INIT 2017-08-19 09:16 HYPOTHYROIDISM, UNSPECIFIED [facility] 2017-08-19 09:16 NICOTINE DEPENDENCE, UNSPECIFIED, [facility] UNCOMPLICATED 2017-08-19 09:16 LACERATION W/O FB OF L IDX FNGR [facility] W/O DAMAGE TO NAIL, SUBS 2017-08-19 09:16 DISLOCATION OF PROXIMAL INTERPHALN i [facility] JOINT OF L IDX FNGR, SUBS 2017-08-19 09:16 UNSP INJURY OF LEFT WRIST, HAND [facility] AND FINGER(S), INIT ENCNT 2017-08-19 09:16 CAUGHT, CRUSH, JAMMED, OR PINCHED [facility] BETW MOVING OBJECTS, SUBS 2017-10-19 10:28 UNSPECIFIED ABDOMINAL PAIN [facility] 2018-01-08 08:00 HYPOTHYROIDISM, UNSPECIFIED [facility] 2018-01-08 08:00 HYPERLIPIDEMIA, UNSPECIFIED [facility] 2018-01-08 08:00 CONSTIPATION, UNSPECIFIED [facility] 2018-01-08 08:00 MELENA [facility] 2018-05-28 12:51 HYPOTHYROIDISM, UNSPECIFIED [facility] 2018-05-28 12:51 HYPERLIPIDEMIA, UNSPECIFIED [facility] 2019-12-05 10:07 UNSPECIFIED DEMENTIA WITHOUT [facility] BEHAVIORAL DISTURBANCE 2019-12-05 10:07 NICOTINE DEPENDENCE, UNSPECIFIED, [facility] UNCOMPLICATED 2019-12-05 10:07 ESSENTIAL (PRIMARY) HYPERTENSION [facility] 2019-12-05 10:07 DIAPHRAGMATIC HERNIA WITHOUT [facility] OBSTRUCTION OR GANGRENE 2019-12-05 10:07 SLOW TRANSIT CONSTIPATION [facility] 2019-12-05 10:07 GENERALIZED ABDOMINAL PAIN [facility] 2019-12-05 10:07 UNSPECIFIED ABDOMINAL PAIN [facility] 2019-12-05 10:07 ACQUIRED ABSENCE OF BOTH CERVIX [facility] AND UTERUS 2020-07-05 07:05 UNSPECIFIED DEMENTIA [facility]URBANC 2020-07-05 07:05 LACERATION WITHOUT FOREIGN BODY OF [facility] SCALP, INITIAL 2020-07-05 07:05 FALL SAME LEV FROM SLIP/TRIP W [facility] STRIKE AGNST OTH OB 2020-07-05 07:[address] IN [facility] (PRIVATE) RESIDENC 2020-07-05 07:05 ACTIVITY, WALKING, MARCHING AND [facility] HIKING 2020-07-05 07:05 UNSPECIFIED DEMENTIA WITHOUT [facility] BEHAVIORAL DISTURBANCE 2020-07-05 07:05 NICOTINE DEPENDENCE, UNSPECIFIED, [facility] UNCOMPLICATED 2020-07-05 07:05 ESSENTIAL (PRIMARY) HYPERTENSION [facility] 2020-07-05 07:05 LACERATION WITHOUT FOREIGN BODY OF [facility] SCALP, INITIAL ENCOUNTER 2020-07-05 07:05 UNSPECIFIED INJURY OF HEAD, [facility] INITIAL ENCOUNTER 2020-07-05 07:05 FALL SAME LEV FROM SLIP/TRIP W [facility] STRIKE AGNST OTH OBJECT, INIT 2020-07-05 07:[address] [facility] 2020-07-15 13:56 UNSPECIFIED DEMENTIA WITHOUT [facility] BEHAVIORAL DISTURBANC 2020-07-15 13:56 NICOTINE DEPENDENCE, UNSPECIFIED, [facility] UNCOMPLICATED 2020-07-15 13:56 ESSENTIAL (PRIMARY) HYPERTENSION [facility] 2020-07-15 13:56 LACERATION WITHOUT FOREIGN BODY OF [facility] SCALP, SUBS ENC 2020-07-15 13:56 EXPOSURE TO OTHER SPECIFIED [facility] FACTORS, SUBSEQUENT EN Allergies date description facility NO KNOWN ENVIRONMENTAL ALLERGIES [facility] ACYCLOVIR [facility] [place] RITUXIMAB [facility] [place] No Known Medication Allergies [facility] NO KNOWN ALLERGIES [facility] DYE [facility] IODINE [facility] No Known Drug Allergies [facility] CODEINE [facility] Medic al Center NO KNOWN ENVIRONMENTAL ALLERGIES [facility] PENICILLINS [facility] Medic al Center SULFA ANTIBIOTICS [facility] Medic al Center IODINE AND IODIDE CONTAINING PRODUCTS [facility] NO KNOWN ALLERGIES [facility] Medic al Center GLUCOSAMINE ANALOGUES [facility] dical Center LATEX [facility] Medic al Center WHEAT [facility] Medic al Center TALC [facility] Medic al Center DOXYCYCLINE [facility] Medic al Center AZITHROMYCIN [facility] Medic al Center AMOXICILLIN [facility] Medic al Center GLUCOSAMINE [facility] Medic al Center NICKEL [facility] Medic al Center IODINE [facility] Medic al Center IPRATROPIUM-ALBUTEROL [facility] dical Center No Known Drug Allergies [facility] No Known Drug Allergies [facility] No Known Drug Allergies [facility] No Known Drug Allergies [facility] Results Social History date description facility [id number]
== END 2020-08-10 21:13 | disposition home or self-care (01) ==
LOC: EDUNIT# → ED 16:49
DX: E86.0 Dehydration (principal); R55 Syncope and collapse; R40.0 Somnolence; I10 Essential (primary) hypertension; F03.90 Unspecified dementia, unspecified severity, without behavioral disturbance, psychotic disturbance, mood disturbance, and anxiety; F17.200 Nicotine dependence, unspecified, uncomplicated
CPT/HCPCS: 36415; 51701; 80053; 81001; 81003; 83690; 84484; 85025; 87086; 93005; 99281

== ENCOUNTER 2020-08-10 21:19 | Outpatient (CLI) | payer MEDICARE, BC | END 2020-08-10 21:20 | disposition home or self-care (01) | LOC: EMS 21:19 | PROVIDERS: ATTEND Surgery | DX: F03.90 Unspecified dementia, unspecified severity, without behavioral disturbance, psychotic disturbance, mood disturbance, and anxiety (principal) | CPT/HCPCS: A0425; A0428 ==